=== PATIENT | male | born 1945 | race Caucasian/White ===

== ENCOUNTER 2017-02-16 05:41 | Inpatient (IN) | payer MEDICARE ==
[2017-02-11 12:04] LABS: BASOPHILS 0.5 %; BASOPHILS ABSOLUTE 0.03 10/3/uL (0.0-0.16); EOSINOPHILS ABSOLUTE 0.12 10/3/uL (0.0-0.53); HEMATOCRIT 42.7 % (40.0-51.0); HEMOGLOBIN 14.4 g/dL (13.6-17.8); IMMATURE GRANULOCYTES 0.2 %; IMMATURE GRANULOCYTES ABSOLUTE 0.01 10/3/uL (0.0-0.11); LYMPHOCYTES 33.3 %; LYMPHOCYTES ABSOLUTE 2.03 10/3/uL (0.67-4.30); MANUAL DIFF NO %; MEAN CORPUS HGB CONC 33.7 g/dL (32.0-36.0); MEAN CORPUSCULAR HEMOGLOB 32.9 pg (26.0-34.0); MEAN CORPUSCULAR VOLUME 97.5 fL (80-100); MEAN PLATELET VOLUME 10.5 fL (9.2-13.0); MONOCYTES 11.3 %; MONOCYTES ABSOLUTE 0.69 10/3/uL (0.21-1.20); NEUTROPHILS 52.7 %; NEUTROPHILS ABSOLUTE 3.21 10/3/uL (2.02-8.40); PLATELET COUNT 230 10/3/uL (150-400); RBC DISTRIBUTION WIDTH 12.8 % (12.0-16.0); RED CELL COUNT 4.38 10/6/uL (4.7-6.1); WHITE BLOOD CELLS 6.1 10/3/uL (4.5-10.5)
[2017-02-11 12:12] LABS: INTERNATIONAL NORMAL RATI 2.2 UNITS (-); PARTIAL THROMBO TIME 37.4 SEC (22.5-37.2); PROTIME (NOT ORD) 24.2 SEC (12.0-14.5)
[2017-02-11 12:17] LABS: A/G RATIO 1.1 (0.7-1.9); ALBUMIN 3.7 G/DL (3.5-5.0); ALKALINE PHOSPHATASE 85 U/L (45-117); BUN (BLOOD UREA NITROGEN) 13 MG/DL (6-23); CALCIUM, SERUM 8.9 MG/DL (8.5-10.4); CHLORIDE, SERUM 107 MMOL/L (96-112); CO2 (CARBON DIOXIDE) 33 MMOL/L (24-34); CREATININE 0.82 MG/DL (0.70-1.30); GFR AFRICAN AMERICAN 102 ML/MIN (>=60); GFR NON AFRICAN AMERICAN 88 ML/MIN (>=60); GLOBULIN 3.4 G/DL (2.5-4.1); GLUCOSE, SERUM 76 MG/DL (60-99); POTASSIUM, SERUM 4.2 MMOL/L (3.5-5.3); SGOT(AST) 30 U/L (5-40); SGPT(ALT) 19 U/L (5-65); SODIUM, SERUM 143 MMOL/L (135-148); TOTAL PROTEIN 7.1 G/DL (6.0-8.5)
[2017-02-11 12:18] LABS: TOTAL BILIRUBIN 1.3 MG/DL (0-1.2)
[2017-02-11 14:32] LABS: ASCORBIC ACID (UR NOT ORDER) NEG (NEG); BILIRUBIN, URINE NEGATIVE (NEG); KETONE, URINE NEGATIVE (NEG); LEUKOCYTE ESTERASE(NOT OR NEG (NEG); WBC (NOT ORDERED) (RFLEX) 1 (0-5)
--- NOTE | ~2017-02-16 | OP ---
Record Of Operation [facility] [address] [place]. [address] NAME: JUAN GARCIA : 43 STATUS : ADM IN PAT#: [id number] AGE: 71 ADM/REG DATE : 02/16/17 MR#: [id number] REPORT SERV DATE: 02/16/17 DICTATED BY: KELIN STOREY JR. DATE: 02/16/17 REPORT STATUS : Draft TRANSCRIBED BY: ASHLEY DATE: 02/16/17 DATE OF PROCEDURE: 02/16/2017 DIRECTOR OF THE BIOPHYSICS FACILITY: Pili Parham. 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 PREOPERATIVE DIAGNOSIS: Recurrent gastrointestinal stromal tumor. POSTOPERATIVE DIAGNOSIS: Recurrent gastrointestinal stromal tumor. ANESTHESIA: General. 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 Resection of portion of stomach, small and large bowel, this was in 2011, which was treated adjuvant Gleevec. He initially developed evidence of symptomatic recurrence, this appears localized with no evidence of any distant metastatic disease. Exploration for resection was indicated. FINDINGS: On x-rays of the abdomen, there was large mass in left upper quadrant. It appeared to involve the distal pancreas, spleen, and kidney. There was no involvement of the stomach or bowel. The previous gastric resection suture line was identified as was the previous bowel anastomosis, it was well away from these areas. There was no evidence of any separate peritoneal lesions and no hepatic metastasis. There was additional separate peripancreatic lymph node that was excised as a separate specimen. PROCEDURE: With adequate general anesthesia, the patient was placed in supine position. The abdomen was prepped and draped sterilely. Previous midline incision was utilized and dissection was carried down sharply through the skin and subcutaneous tissues. The fascia and peritoneum were opened. The peritoneal cavity was entered. Some omental adhesions were dissected sharply, and the abdomen was explored. The dissection begun by the greater curve of the stomach from the mass, securing bleeders with the EnSeal device. This was carried out to take the short gastric vessels. Then, the bowel mesentery was from the mass inferiorly and the spleen was mobilized laterally by dividing the peritoneal attachments. This enabled mobilization of the spleen, kidney, and pancreas towards the midline. Then, working from inferior direction, the Gerota's fascia tissue was divided again with the EnSeal device, the left ureter was identified and divided. The testicular vein was divided. Then, the pancreas was divided utilizing a SHARON 75 with a thick tissue load. The artery was suture ligated. Then, the renal vein was identified, ligated, and divided as was the renal artery. The remaining soft tissues were divided and this enabled removal of the specimen. This was submitted to pathology with appropriate orientation. Additional bleeders controlled with suture ligatures of silk, clips, EnSeal device, also with Evicel fibrin spray. The wound was irrigated with both sterile water and saline, hemostasis assured. Then, a 19 Grayson drain was left in subhepatic space and brought out through a stab incision, and was secured with a nylon suture. The wound was closed with a Record Of Operation [address] [place]. [address] NAME: JUAN GARCIA : 43 STATUS : ADM IN [facility]#: [id number] AGE: 71 ADM/REG DATE : 02/16/17 MR#: [id number] REPORT SERV DATE: 02/16/17 DICTATED BY: KELIN STOREY JR. DATE: 02/16/17 REPORT STATUS : Draft TRANSCRIBED BY: ASHLEY DATE: 02/16/17 running 0 PDS suture for the fascial layer, subcutaneous Vicryl and dermal Monocryl. A negative pressure dressing was placed. The patient left the operating room in satisfactory condition. ESTIMATED BLOOD LOSS: 150 mL. MANN/ASHLEY Kelin Storey Jr., M.D. / [id number] CC: Kelin Storey Jr., M.D.
--- NOTE | ~2017-02-16 | DS ---
Discharge Summary [facility] [address] [place]. [address] NAME: JUAN GARCIA : 43 STATUS : DIS IN PAT#: [id number] AGE: 71 ADM/REG DATE : 02/16/17 MR#: [id number] REPORT SERV DATE: 02/28/17 DICTATED BY: KELIN STOREY JR. DATE: 02/27/17 REPORT STATUS : Draft TRANSCRIBED BY: ASHLEY DATE: 02/27/17 Data Collection from hospitalization DISCHARGE DIAGNOSIS(ES): 1. Recurrent gastrointestinal stromal tumor. 2. History of atrial fibrillation. 3. Status post pacemaker insertion. 4. History of congestive heart failure. 5. Mild pulmonary hypertension. CONSULTATIONS: None. PROCEDURES PERFORMED: 1. Resection of recurrent gastrointestinal stromal tumor 16 cm with distal pancreatectomy, splenectomy, and left nephrectomy, 02/16/2017. 2. CTA of the chest, 02/19/2017. PATHOLOGY: Distal pancreas, spleen, and left kidney; distal pancreatectomy, splenectomy, and left nephrectomy; recurrent gastrointestinal stromal tumor; lymph node, pancreatic excisional biopsy, 0 of 1 node involved by tumor. MEDICATIONS: Lipitor 20 mg every other day; Pepcid 20 mg twice daily; Coumadin 5 mg on Thursday, Thursday, Thursday, and Thursday, 2.5 mg Thursday, Thursday, and Thursday; Toprol-XL 25 mg daily, Lasix 40 mg daily, fish oil 1000 mg daily, Klor-Con 20 mEq as directed; and Percocet 5/325 one every six hours as needed. CONDITION AT DISCHARGE: Upon discharge, he did appear to be doing well and had no complaints. DISPOSITION: He was discharged home to continue a GI soft diet with no heavy lifting and no driving while taking narcotics. He was to follow up with me in the office in 7-10 days. 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 He initially developed evidence of symptomatic recurrence. This appeared localized with no evidence of any distant metastatic disease. Exploration for resection was indicated, and he was admitted for this and further treatment. Upon admission to the hospital, he had been taken to the operating room where he did undergo the above procedure. He tolerated this well and was transferred to the recovery room. On postop day #1, he did appear to be doing well and had no complaints. He had been placed on a full liquid diet as he tolerated clear liquids on the day of the procedure. He was still on IV [employer] for pain control. On postop day #2, he did remain in stable condition, and his Vaughan catheter was removed. On postop day #3, he did remain in stable condition and was noted to have had some nausea the previous evening, however, this did resolve. He did undergo the above CTA of the chest as he was noted to have had increased work of breathing and O2 requirements. On postop day #4, he did continue to do well and had no new complaints. On postop day #5, he was complaining about the NG tube and wanted to go home. He did look much better. He was continued on supportive care. On postop day #6, he was Discharge Summary [address] [place]. [address] NAME: JUAN GARCIA : 43 STATUS : DIS IN PAT#: [id number] AGE: 71 ADM/REG DATE : 02/16/17 MR#: [id number] REPORT SERV DATE: 02/28/17 DICTATED BY: KELIN STOREY JR. DATE: 02/27/17 REPORT STATUS : Draft TRANSCRIBED BY: ASHLEY DATE: 02/27/17 afebrile and his vital signs had remained stable. His WBCs were at 9.3, hemoglobin was at 10.3, and hematocrit 30.3. He had pulled out his NG tube during the night and had no nausea or vomiting since then. His abdomen was soft and nondistended. He had been advanced to a full liquid diet and did appear to be tolerating this. He did remain in stable condition throughout the next few days, and his diet was slowly advanced. He was then discharged on 02/23/2017 with the above instructions. Information collected by: Wanda Barron. I submit the above information as my discharge summary. MANSOOR/ASHLEY Kelin Storey Jr., M.D. / [id number] CC: Yulissa Peguero Jr., M.D.
[~2017-02-16 05:41] MED LIST: C25 PO; C5 PO; FISH-EPA1000 MG PO; JANTOVEN2.5 MG PO; KLOR-CON M2020 MEQ PO; L40 PO; LIPITOR20 PO; LIPITOR80 MG PO; LOP50 PO; PEP20 PO; PRILO PO; SEVERAL VITS PO; TOPXL25 PO
[2017-02-16 06:30] LABS: INTERNATIONAL NORMAL RATI 1.4 UNITS (-)
[2017-02-16 06:31] LABS: PROTIME (NOT ORD) 17.4 SEC (12.0-14.5)
[2017-02-16 11:16] LABS: BASOPHILS 0.1 %; BASOPHILS ABSOLUTE 0.01 10/3/uL (0.0-0.16); EOSINOPHILS 0.1 %; EOSINOPHILS ABSOLUTE 0.02 10/3/uL (0.0-0.53); HEMOGLOBIN 12.3 g/dL (13.6-17.8); IMMATURE GRANULOCYTES 0.2 %; IMMATURE GRANULOCYTES ABSOLUTE 0.03 10/3/uL (0.0-0.11); LYMPHOCYTES 8.9 %; LYMPHOCYTES ABSOLUTE 1.25 10/3/uL (0.67-4.30); MEAN CORPUS HGB CONC 33.3 g/dL (32.0-36.0); MEAN CORPUSCULAR VOLUME 96.1 fL (80-100); MEAN PLATELET VOLUME 10.3 fL (9.2-13.0); MONOCYTES 1.6 %; MONOCYTES ABSOLUTE 0.22 10/3/uL (0.21-1.20); NEUTROPHILS 89.1 %; NEUTROPHILS ABSOLUTE 12.47 10/3/uL (2.02-8.40); PLATELET COUNT 191 10/3/uL (150-400); RBC DISTRIBUTION WIDTH 12.6 % (12.0-16.0); RED CELL COUNT 3.84 10/6/uL (4.7-6.1)
[2017-02-16 11:17] LABS: HEMATOCRIT 36.9 % (40.0-51.0); MANUAL DIFF NO %
[2017-02-16 11:31] LABS: BUN (BLOOD UREA NITROGEN) 12 MG/DL (6-23); CALCIUM, SERUM 8.2 MG/DL (8.5-10.4); CHLORIDE, SERUM 109 MMOL/L (96-112); CO2 (CARBON DIOXIDE) 25 MMOL/L (24-34); CREATININE 0.95 MG/DL (0.70-1.30); GFR AFRICAN AMERICAN 92 ML/MIN (>=60); GFR NON AFRICAN AMERICAN 80 ML/MIN (>=60); GLUCOSE, SERUM 114 MG/DL (60-99); POTASSIUM, SERUM 3.8 MMOL/L (3.5-5.3); SODIUM, SERUM 142 MMOL/L (135-148)
[2017-02-16 17:19] LABS: HEMATOCRIT 35.3 % (40.0-51.0); HEMOGLOBIN 12.2 g/dL (13.6-17.8)
[2017-02-17 04:58] LABS: BASOPHILS 0.1 %; BASOPHILS ABSOLUTE 0.01 10/3/uL (0.0-0.16); EOSINOPHILS 0 %; HEMATOCRIT 34.6 % (40.0-51.0); HEMOGLOBIN 11.8 g/dL (13.6-17.8); IMMATURE GRANULOCYTES 0.2 %; IMMATURE GRANULOCYTES ABSOLUTE 0.02 10/3/uL (0.0-0.11); LYMPHOCYTES 11.5 %; LYMPHOCYTES ABSOLUTE 1.44 10/3/uL (0.67-4.30); MEAN CORPUS HGB CONC 34.1 g/dL (32.0-36.0); MEAN CORPUSCULAR VOLUME 96.6 fL (80-100); MEAN PLATELET VOLUME 9.9 fL (9.2-13.0); MONOCYTES 11.2 %; NEUTROPHILS ABSOLUTE 9.62 10/3/uL (2.02-8.40); PLATELET COUNT 204 10/3/uL (150-400); RBC DISTRIBUTION WIDTH 12.7 % (12.0-16.0); RED CELL COUNT 3.58 10/6/uL (4.7-6.1); WHITE BLOOD CELLS 12.5 10/3/uL (4.5-10.5)
[2017-02-17 04:59] LABS: MANUAL DIFF NO %
[2017-02-17 05:05] LABS: PARTIAL THROMBO TIME 39.3 SEC (22.5-37.2)
[2017-02-17 05:06] LABS: INTERNATIONAL NORMAL RATI 1.6 UNITS (-); PROTIME (NOT ORD) 19.3 SEC (12.0-14.5)
[2017-02-17 05:12] LABS: ALBUMIN 3.3 G/DL (3.5-5.0); BUN (BLOOD UREA NITROGEN) 15 MG/DL (6-23); CALCIUM, SERUM 8.5 MG/DL (8.5-10.4); CHLORIDE, SERUM 108 MMOL/L (96-112); CO2 (CARBON DIOXIDE) 28 MMOL/L (24-34); CREATININE 1.36 MG/DL (0.70-1.30); GFR AFRICAN AMERICAN 60 ML/MIN (>=60); GFR NON AFRICAN AMERICAN 52 ML/MIN (>=60); GLUCOSE, SERUM 119 MG/DL (60-99); SGOT(AST) 24 U/L (5-40); SGPT(ALT) 14 U/L (5-65); SODIUM, SERUM 141 MMOL/L (135-148); TOTAL BILIRUBIN 1.5 MG/DL (0-1.2); TOTAL PROTEIN 5.9 G/DL (6.0-8.5)
[2017-02-17 05:13] LABS: A/G RATIO 1.3 (0.7-1.9); ALKALINE PHOSPHATASE 65 U/L (45-117); GLOBULIN 2.6 G/DL (2.5-4.1); POTASSIUM, SERUM 5.1 MMOL/L (3.5-5.3)
[2017-02-18 06:52] LABS: BASOPHILS 0.2 %; BASOPHILS ABSOLUTE 0.02 10/3/uL (0.0-0.16); EOSINOPHILS 0.6 %; EOSINOPHILS ABSOLUTE 0.06 10/3/uL (0.0-0.53); HEMATOCRIT 33.4 % (40.0-51.0); HEMOGLOBIN 11.3 g/dL (13.6-17.8); IMMATURE GRANULOCYTES 0.2 %; IMMATURE GRANULOCYTES ABSOLUTE 0.02 10/3/uL (0.0-0.11); LYMPHOCYTES 13.4 %; LYMPHOCYTES ABSOLUTE 1.42 10/3/uL (0.67-4.30); MANUAL DIFF NO %; MEAN CORPUS HGB CONC 33.8 g/dL (32.0-36.0); MEAN CORPUSCULAR HEMOGLOB 32.9 pg (26.0-34.0); MEAN CORPUSCULAR VOLUME 97.4 fL (80-100); MEAN PLATELET VOLUME 10.6 fL (9.2-13.0); MONOCYTES 14.2 %; NEUTROPHILS 71.4 %; NEUTROPHILS ABSOLUTE 7.56 10/3/uL (2.02-8.40); PLATELET COUNT 226 10/3/uL (150-400); RED CELL COUNT 3.43 10/6/uL (4.7-6.1); WHITE BLOOD CELLS 10.6 10/3/uL (4.5-10.5)
[2017-02-18 07:18] LABS: A/G RATIO 1.1 (0.7-1.9); ALBUMIN 2.8 G/DL (3.5-5.0); ALKALINE PHOSPHATASE 59 U/L (45-117); CALCIUM, SERUM 8.3 MG/DL (8.5-10.4); CHLORIDE, SERUM 104 MMOL/L (96-112); CO2 (CARBON DIOXIDE) 27 MMOL/L (24-34); CREATININE 1.34 MG/DL (0.70-1.30); GFR AFRICAN AMERICAN 61 ML/MIN (>=60); GFR NON AFRICAN AMERICAN 53 ML/MIN (>=60); GLOBULIN 2.5 G/DL (2.5-4.1); GLUCOSE, SERUM 116 MG/DL (60-99); POTASSIUM, SERUM 4.4 MMOL/L (3.5-5.3); SGOT(AST) 24 U/L (5-40); SGPT(ALT) 10 U/L (5-65); SODIUM, SERUM 135 MMOL/L (135-148); TOTAL BILIRUBIN 1.6 MG/DL (0-1.2); TOTAL PROTEIN 5.3 G/DL (6.0-8.5)
[2017-02-18 07:19] LABS: BUN (BLOOD UREA NITROGEN) 10 MG/DL (6-23)
[2017-02-19 06:09] LABS: BASOPHILS 0.4 %; BASOPHILS ABSOLUTE 0.01 10/3/uL (0.0-0.16); EOSINOPHILS 0.8 %; EOSINOPHILS ABSOLUTE 0.02 10/3/uL (0.0-0.53); HEMATOCRIT 39.3 % (40.0-51.0); HEMOGLOBIN 13.3 g/dL (13.6-17.8); IMMATURE GRANULOCYTES 0.4 %; IMMATURE GRANULOCYTES ABSOLUTE 0.01 10/3/uL (0.0-0.11); LYMPHOCYTES 30.5 %; MEAN CORPUS HGB CONC 33.8 g/dL (32.0-36.0); MEAN CORPUSCULAR HEMOGLOB 32.6 pg (26.0-34.0); MEAN CORPUSCULAR VOLUME 96.3 fL (80-100); MEAN PLATELET VOLUME 10.4 fL (9.2-13.0); MONOCYTES 13.7 %; MONOCYTES ABSOLUTE 0.36 10/3/uL (0.21-1.20); NEUTROPHILS 54.2 %; NEUTROPHILS ABSOLUTE 1.42 10/3/uL (2.02-8.40); PLATELET COUNT 280 10/3/uL (150-400); RBC DISTRIBUTION WIDTH 12.5 % (12.0-16.0); RED CELL COUNT 4.08 10/6/uL (4.7-6.1); WHITE BLOOD CELLS 2.6 10/3/uL (4.5-10.5)
[2017-02-19 06:10] LABS: MANUAL DIFF NO %
[2017-02-19 06:27] LABS: A/G RATIO 0.9 (0.7-1.9); ALKALINE PHOSPHATASE 73 U/L (45-117); BUN (BLOOD UREA NITROGEN) 12 MG/DL (6-23); CALCIUM, SERUM 8.8 MG/DL (8.5-10.4); CHLORIDE, SERUM 102 MMOL/L (96-112); CO2 (CARBON DIOXIDE) 28 MMOL/L (24-34); CREATININE 1.27 MG/DL (0.70-1.30); GFR AFRICAN AMERICAN 65 ML/MIN (>=60); GFR NON AFRICAN AMERICAN 56 ML/MIN (>=60); GLOBULIN 3.4 G/DL (2.5-4.1); GLUCOSE, SERUM 114 MG/DL (60-99); POTASSIUM, SERUM 4.2 MMOL/L (3.5-5.3); SGOT(AST) 29 U/L (5-40); SGPT(ALT) 17 U/L (5-65); SODIUM, SERUM 138 MMOL/L (135-148); TOTAL BILIRUBIN 2.5 MG/DL (0-1.2); TOTAL PROTEIN 6.4 G/DL (6.0-8.5)
[2017-02-19 08:59] LABS: ALLENS TEST Pos; CARBOXYHEMOGLOBIN 0.7 % (0-3); HCO3 (ACTUAL BICARBONATE) 21.5 MEQ/L (23-27); HEMOBLOGIN CONTENT 12.8 G/DL (14-18); INSTRUMENT SERIAL # 8083; METHEMOGLOBIN 0.3 % (0-3); O2 CONTENT 16.5 VOL% (18-24); OPERATOR ID 31928; PCO2 (CO2 TENSION) 30 MMHG (35-45); PO2 (O2 TENSION) 63 MMHG (79-93); SAMPLE Arterial; pH 7.48 (7.37-7.43)
[2017-02-19 09:53] LABS: HEMATOCRIT 35.8 % (40.0-51.0); HEMOGLOBIN 12.2 g/dL (13.6-17.8); MEAN CORPUS HGB CONC 34.1 g/dL (32.0-36.0); MEAN CORPUSCULAR HEMOGLOB 32.6 pg (26.0-34.0); MEAN CORPUSCULAR VOLUME 95.7 fL (80-100); MEAN PLATELET VOLUME 10.4 fL (9.2-13.0); PLATELET COUNT 251 10/3/uL (150-400); RBC DISTRIBUTION WIDTH 12.6 % (12.0-16.0); RED CELL COUNT 3.74 10/6/uL (4.7-6.1); WHITE BLOOD CELLS 3.1 10/3/uL (4.5-10.5)
[2017-02-20 05:12] LABS: HEMATOCRIT 34.4 % (40.0-51.0); MEAN CORPUS HGB CONC 34.9 g/dL (32.0-36.0); MEAN CORPUSCULAR HEMOGLOB 33.2 pg (26.0-34.0); MEAN CORPUSCULAR VOLUME 95.3 fL (80-100); PLATELET COUNT 314 10/3/uL (150-400); RBC DISTRIBUTION WIDTH 12.5 % (12.0-16.0); RED CELL COUNT 3.61 10/6/uL (4.7-6.1)
[2017-02-20 05:15] LABS: MANUAL DIFF YES %; WHITE BLOOD CELLS 6.1 10/3/uL (4.5-10.5)
[2017-02-20 05:48] LABS: A/G RATIO 0.7 (0.7-1.9); ALBUMIN 2.5 G/DL (3.5-5.0); ALKALINE PHOSPHATASE 64 U/L (45-117); CALCIUM, SERUM 8.4 MG/DL (8.5-10.4); CHLORIDE, SERUM 104 MMOL/L (96-112); CO2 (CARBON DIOXIDE) 28 MMOL/L (24-34); CREATININE 1.38 MG/DL (0.70-1.30); GFR AFRICAN AMERICAN 59 ML/MIN (>=60); GFR NON AFRICAN AMERICAN 51 ML/MIN (>=60); GLOBULIN 3.5 G/DL (2.5-4.1); GLUCOSE, SERUM 116 MG/DL (60-99); POTASSIUM, SERUM 4.4 MMOL/L (3.5-5.3); SGOT(AST) 21 U/L (5-40); SGPT(ALT) 15 U/L (5-65); SODIUM, SERUM 137 MMOL/L (135-148); TOTAL BILIRUBIN 2.3 MG/DL (0-1.2)
[2017-02-20 05:49] LABS: BUN (BLOOD UREA NITROGEN) 19 MG/DL (6-23)
[2017-02-20 06:14] LABS: BAND NEUTROPHILS 14 %; EOSINOPHILS 3 %; EOSINOPHILS ABSOLUTE (CALC) 0.18 10/3/uL (0.0-0.53); LYMPHOCYTES 15 %; LYMPHOCYTES ABSOLUTE (CALC) 0.92 10/3/uL (0.67-4.30); MONOCYTES 18 %; PLATELET ESTIMATE ADQ (ADEQUATE); RBC MORPHOLOGY NORM (NORMAL); SEGMENTED NEUTROPHIL (0) 50 %; TOTAL NUCLEATED CELLS 100
[2017-02-21 07:44] LABS: HEMOGLOBIN 10.3 g/dL (13.6-17.8); MEAN CORPUSCULAR VOLUME 94.1 fL (80-100); MEAN PLATELET VOLUME 9.6 fL (9.2-13.0); PLATELET COUNT 337 10/3/uL (150-400); RBC DISTRIBUTION WIDTH 12.7 % (12.0-16.0); RED CELL COUNT 3.22 10/6/uL (4.7-6.1)
[2017-02-21 07:45] LABS: HEMATOCRIT 30.3 % (40.0-51.0); MANUAL DIFF YES %; WHITE BLOOD CELLS 9.3 10/3/uL (4.5-10.5)
[2017-02-21 08:01] LABS: A/G RATIO 0.8 (0.7-1.9); ALBUMIN 2.5 G/DL (3.5-5.0); BUN (BLOOD UREA NITROGEN) 17 MG/DL (6-23); CHLORIDE, SERUM 106 MMOL/L (96-112); CO2 (CARBON DIOXIDE) 28 MMOL/L (24-34); CREATININE 1.27 MG/DL (0.70-1.30); GFR AFRICAN AMERICAN 65 ML/MIN (>=60); GFR NON AFRICAN AMERICAN 56 ML/MIN (>=60); GLOBULIN 3.1 G/DL (2.5-4.1); GLUCOSE, SERUM 117 MG/DL (60-99); POTASSIUM, SERUM 3.9 MMOL/L (3.5-5.3); SGOT(AST) 19 U/L (5-40); SGPT(ALT) 15 U/L (5-65); SODIUM, SERUM 139 MMOL/L (135-148); TOTAL PROTEIN 5.6 G/DL (6.0-8.5)
[2017-02-21 08:02] LABS: ALKALINE PHOSPHATASE 76 U/L (45-117); TOTAL BILIRUBIN 1.3 MG/DL (0-1.2)
[2017-02-21 08:34] LABS: BAND NEUTROPHILS 14 %; EOSINOPHILS 2 %; EOSINOPHILS ABSOLUTE (CALC) 0.19 10/3/uL (0.0-0.53); IMMATURE GRANS ABSOLUTE (CALC) 0.19 10/3/uL (0.0-0.11); LYMPHOCYTES 6 %; LYMPHOCYTES ABSOLUTE (CALC) 0.56 10/3/uL (0.67-4.30); METAMYELOCYTES 2 %; MONOCYTES 10 %; MONOCYTES ABSOLUTE (CALC) 0.93 10/3/uL (0.21-1.20); NEUTROPHILS ABSOLUTE (CALC) 7.44 10/3/uL (2.02-8.40); SEGMENTED NEUTROPHIL (0) 66 %; TOTAL NUCLEATED CELLS 100
[2017-02-21 08:35] LABS: PLATELET ESTIMATE ADQ (ADEQUATE); RBC MORPHOLOGY NORM (NORMAL)
[2017-02-22 06:42] LABS: BASOPHILS 0.2 %; BASOPHILS ABSOLUTE 0.02 10/3/uL (0.0-0.16); EOSINOPHILS 2.7 %; EOSINOPHILS ABSOLUTE 0.32 10/3/uL (0.0-0.53); HEMOGLOBIN 11.4 g/dL (13.6-17.8); IMMATURE GRANULOCYTES 0.3 %; IMMATURE GRANULOCYTES ABSOLUTE 0.04 10/3/uL (0.0-0.11); LYMPHOCYTES 12.1 %; LYMPHOCYTES ABSOLUTE 1.46 10/3/uL (0.67-4.30); MEAN CORPUS HGB CONC 33.8 g/dL (32.0-36.0); MEAN CORPUSCULAR VOLUME 94.7 fL (80-100); MEAN PLATELET VOLUME 9.9 fL (9.2-13.0); MONOCYTES 13.8 %; MONOCYTES ABSOLUTE 1.66 10/3/uL (0.21-1.20); NEUTROPHILS 70.9 %; NEUTROPHILS ABSOLUTE 8.56 10/3/uL (2.02-8.40); NUCLEATED RED BLOOD CELLS 0.5 /100WBC (0-0); RBC DISTRIBUTION WIDTH 12.6 % (12.0-16.0); RED CELL COUNT 3.56 10/6/uL (4.7-6.1); WHITE BLOOD CELLS 12.1 10/3/uL (4.5-10.5)
[2017-02-22 06:43] LABS: HEMATOCRIT 33.7 % (40.0-51.0); MANUAL DIFF NO %; PLATELET COUNT 441 10/3/uL (150-400)
[2017-02-22 06:50] LABS: ALBUMIN 2.6 G/DL (3.5-5.0); CALCIUM, SERUM 8.5 MG/DL (8.5-10.4); CHLORIDE, SERUM 107 MMOL/L (96-112); CO2 (CARBON DIOXIDE) 25 MMOL/L (24-34); CREATININE 1.11 MG/DL (0.70-1.30); GFR AFRICAN AMERICAN 76 ML/MIN (>=60); GFR NON AFRICAN AMERICAN 66 ML/MIN (>=60); GLUCOSE, SERUM 123 MG/DL (60-99); POTASSIUM, SERUM 4.3 MMOL/L (3.5-5.3); SGOT(AST) 25 U/L (5-40); SGPT(ALT) 21 U/L (5-65); SODIUM, SERUM 138 MMOL/L (135-148); TOTAL BILIRUBIN 1.2 MG/DL (0-1.2); TOTAL PROTEIN 6.6 G/DL (6.0-8.5)
[2017-02-22 06:51] LABS: A/G RATIO 0.7 (0.7-1.9); ALKALINE PHOSPHATASE 127 U/L (45-117); BUN (BLOOD UREA NITROGEN) 12 MG/DL (6-23)
[2017-02-23] MEDS ORDERED: PCET PO (18:35)
== END 2017-02-23 18:50 | disposition home or self-care (01) | DRG 515 ==
LOC: SDC/OF 05:41 → MIC 13:52 → 5SO 02-17 11:56
PROVIDERS: Specialist
PROC: 07TP0ZZ Resection of Spleen, Open Approach (ICD-10-PCS; 2017-02-16)
PROC: 0TT10ZZ Resection of Left Kidney, Open Approach (ICD-10-PCS; 2017-02-16)
PROC: 07BB0ZZ Excision of Mesenteric Lymphatic, Open Approach (ICD-10-PCS; 2017-02-16)
PROC: 0FBG0ZZ Excision of Pancreas, Open Approach (ICD-10-PCS; principal; 2017-02-16 07:45)
DX: D48.1 Neoplasm of uncertain behavior of connective and other soft tissue (principal); J95.2 Acute pulmonary insufficiency following nonthoracic surgery; I42.9 Cardiomyopathy, unspecified; J98.11 Atelectasis; I27.2 Other secondary pulmonary hypertension; Z95.810 Presence of automatic (implantable) cardiac defibrillator; I25.10 Atherosclerotic heart disease of native coronary artery without angina pectoris; I50.9 Heart failure, unspecified; I48.2 Chronic atrial fibrillation
CPT/HCPCS: 36415; 36600; 71010; 71020; 71275; 74000; 80048; 80053; 81001; 82805; 83690; 83735; 85014; 85018; 85025; 85027; 85610; 85730; 86850; 86900; 86901; 86920; 87641; 88305; 88309; 88342; 93005; A9270-GY; C1751; C1769; J0690; J2250; J2270; J2405; J2550; J2710; J2795; J3010; P9047; Q9967